=== PATIENT | male | born 1965 | race Caucasian/White ===

== ENCOUNTER 2022-07-11 10:33 | Outpatient (CLI) | payer BC, SELFPAY ==
[2022-07-11 12:40] LABS: Albumin* 4.8 g/dL (3.3-5.0); Chloride* 104 mmol/L (96-114); Sodium* 138 mmol/L (135-149)
[2022-07-11 12:42] LABS: Cholesterol* 192 mg/dL (90-199)
[2022-07-11 12:43] LABS: Alanine Aminotransferase* 23 U/L (4-50); Alkaline Phosphatase* 86 U/L (40-150); Aspartate Amino Transferase* 26 U/L (12-35); Bilirubin Total* 0.5 mg/dL (0.1-1.5); Blood Urea Nitrogen* 22 mg/dL (7-30); Carbon Dioxide* 25 mmol/L (20-32); Creatinine* 1.3 mg/dL (0.5-1.5); Estimated Glomerular Filt Rate 64 ml/min; Glucose* 120 mg/dL (60-115); Total Protein* 7.3 g/dL (6.0-8.3); Triglycerides* 68 mg/dL (40-149)
[2022-07-11 12:44] LABS: Calcium* 9.9 mg/dL (8.4-10.6); HDL Cholesterol* 45 mg/dL (>=40); LDL Cholesterol Calculated 133 mg/dL (<100)
[2022-07-11 13:04] LABS: PSA Screen* 0.78 ng/mL (0.10-4.00)
[2022-07-11 13:13] LABS: Ferritin* 88.1 ng/mL (17.9-464.0)
== END 2022-07-11 10:34 | disposition home or self-care (01) ==
PROVIDERS: PCP Physician Assistant Medical; Visit Provider Physician Assistant Medical
DX: Z00.00 Encounter for general adult medical examination without abnormal findings (principal); G47.9 Sleep disorder, unspecified; E78.5 Hyperlipidemia, unspecified; R73.09 Other abnormal glucose
CPT/HCPCS: 80053; 80061; 82728; 84153

== ENCOUNTER 2023-07-18 09:35 | Outpatient (CLI) | payer BC, SELFPAY | END 2023-07-18 09:36 | disposition home or self-care (01) | PROVIDERS: PCP Physician Assistant Medical; Visit Provider Physician Assistant Medical | DX: Z00.00 Encounter for general adult medical examination without abnormal findings (principal); Z13.6 Encounter for screening for cardiovascular disorders; Z12.5 Encounter for screening for malignant neoplasm of prostate | CPT/HCPCS: 80053; 80061; 84153; 86703; 86803 ==

== ENCOUNTER 2024-05-12 15:00 | Outpatient (CLI) | payer BC, SELFPAY | END 2024-05-12 15:01 | disposition home or self-care (01) | LOC: NFLDREF 05-15 13:30 | PROVIDERS: PCP Physician Assistant Medical; Referring Provider Physician Assistant Medical; Visit Provider Nurse Practitioner Family | DX: R10.32 Left lower quadrant pain (principal) | CPT/HCPCS: 87086 ==

== ENCOUNTER 2024-05-14 12:30 | Outpatient (CLI) | payer BC, SELFPAY ==
--- NOTE | 2024-05-14 13:00 | CRLHL7_ITS ---
For Patients: As a result of the Century Cures Act, medical imaging exams and procedure reports are released immediately into your electronic medical record. You may view this report before your referring provider. If you have questions, please contact your health care provider. INDICATION: Left lower quadrant abdominal pain. COMPARISON: None. TECHNIQUE: CT abdomen and pelvis with intravenous contrast; coronal and sagittal reformats. FINDINGS: No nodules through the lung bases. No evidence of pleural effusion. Normal size cardiac silhouette without any pericardial effusion. Mild diffuse fatty infiltration of the liver. No focal hepatic or splenic pathology. No pancreatic pathology. Cholelithiasis. No adrenal pathology. No kidney stones or obstructive uropathy. Peripelvic cysts both kidneys. No retroperitoneal lymphadenopathy. Acute diverticulitis sigmoid colon with a 1.3 cm intramural abscess. No pneumoperitoneum or intestinal obstruction. CT of the pelvis is unremarkable. IMPRESSION: 1. Acute diverticulitis sigmoid colon with a 1.3 cm intramural abscess. 2. No pneumoperitoneum or intestinal obstruction. 3. Gallstones 4. Mild diffuse fatty infiltration of the liver. Please note that all CT scans at this facility use dose modulation, iterative reconstruction, and/or weight-based dosing when appropriate to reduce radiation dose to as low as reasonably achievable. Dictated by Ben Menard MD @ 05/15/2024 1:56:01 PM (Electronically Signed)
== END 2024-05-14 12:31 | disposition home or self-care (01) ==
LOC: CT 12:31
PROVIDERS: PCP Physician Assistant Medical; Visit Provider Nurse Practitioner Family
DX: R10.32 Left lower quadrant pain (principal); K57.32 Diverticulitis of large intestine without perforation or abscess without bleeding; K80.20 Calculus of gallbladder without cholecystitis without obstruction; K76.0 Fatty (change of) liver, not elsewhere classified
CPT/HCPCS: 74177; Q9967

== ENCOUNTER 2024-05-28 07:25 | Outpatient (CLI) | payer BC, SELFPAY ==
--- NOTE | 2024-05-28 08:00 | CRLHL7_ITS ---
For Patients: As a result of the Century Cures Act, medical imaging exams and procedure reports are released immediately into your electronic medical record. You may view this report before your referring provider. If you have questions, please contact your health care provider. INDICATION: Follow-up abscess. TECHNIQUE: CT abdomen and pelvis acquired with 99 cc Isovue 370 IV contrast. COMPARISON: 05/14/2020. FINDINGS: Lower chest: Unremarkable. Liver: Unremarkable. Normal in size and attenuation. No suspicious masses. Gallbladder and bile ducts: Cholelithiasis. No significant biliary ductal dilatation Pancreas: Unremarkable. No mass or inflammation. Spleen: Unremarkable. Normal in size. No masses. Adrenal glands: Unremarkable. No nodules. Kidneys: Unremarkable. No suspicious masses, stones, or hydronephrosis. GI tract and peritoneal space: Stomach and small bowel normal. Normal appendix. Colonic diverticulosis with substantial interval improvement in acute diverticulitis in the proximal sigmoid colon. Mild residual pericolonic fat stranding surrounding the inflamed diverticulum. Essentially complete resolution of the previous 1.3 centimeter intramural abscess with mild residual inflammatory wall thickening (axial series 2, image [id number]). No new fluid collection. No free intraperitoneal air. Vasculature: Abdominal aorta is normal in caliber. Mesenteric arteries are patent. Lymph nodes: No lymphadenopathy. Abdominal Wall: Fat containing left inguinal hernia and small umbilical hernia. No bowel containing hernia. No suspicious abdominal wall mass. Pelvis: Unremarkable. Bones: Unremarkable for age. IMPRESSION: 1. Substantial interval improvement in proximal sigmoid diverticulitis with mild residual fat stranding remaining. Essentially complete resolution of the previous intramural abscess with mild inflammatory wall thickening remaining at the location of the previous abscess. No drainable fluid collection at this time. 2. Cholelithiasis. Please note that all CT scans at this facility use dose modulation, iterative reconstruction, and/or weight-based dosing when appropriate to reduce radiation dose to as low as reasonably achievable. Dictated by Marquise Adams MD @ 05/28/2024 1:46:34 PM (Electronically Signed)
== END 2024-05-28 07:26 | disposition home or self-care (01) ==
LOC: CT 07:25
PROVIDERS: PCP Physician Assistant Medical; Visit Provider Family Medicine
DX: K57.80 Diverticulitis of intestine, part unspecified, with perforation and abscess without bleeding (principal); K80.20 Calculus of gallbladder without cholecystitis without obstruction
CPT/HCPCS: 74177; Q9967

== ENCOUNTER 2024-08-13 08:36 | Outpatient (CLI) | payer BC, SELFPAY | END 2024-08-13 08:37 | disposition home or self-care (01) | LOC: NFLDREF 08-17 15:31 | PROVIDERS: PCP Physician Assistant Medical; Referring Provider Physician Assistant Medical; Visit Provider Physician Assistant Medical | DX: Z00.00 Encounter for general adult medical examination without abnormal findings (principal); E78.5 Hyperlipidemia, unspecified; R03.0 Elevated blood-pressure reading, without diagnosis of hypertension; R73.09 Other abnormal glucose; Z12.5 Encounter for screening for malignant neoplasm of prostate | CPT/HCPCS: 80053; 80061; G0103 ==

== ENCOUNTER 2024-11-11 08:36 | Outpatient (CLI) | payer BC, SELFPAY | END 2024-11-11 08:37 | disposition home or self-care (01) | LOC: NFLDREF 11-14 02:29 | PROVIDERS: PCP Physician Assistant Medical; Referring Provider Physician Assistant Medical; Visit Provider Physician Assistant Medical | DX: E78.5 Hyperlipidemia, unspecified (principal) | CPT/HCPCS: 80061; 80076 ==

== ENCOUNTER 2025-05-06 08:38 | Outpatient (CLI) | payer BC, SELFPAY | END 2025-05-06 08:39 | disposition home or self-care (01) | LOC: NFLDREF 05-10 19:18 | PROVIDERS: PCP Physician Assistant Medical; Referring Provider Physician Assistant Medical; Visit Provider Physician Assistant Medical | DX: Z00.00 Encounter for general adult medical examination without abnormal findings (principal); E78.5 Hyperlipidemia, unspecified; R73.09 Other abnormal glucose; Z12.5 Encounter for screening for malignant neoplasm of prostate | CPT/HCPCS: 80053; 80061; G0103 ==